=== PATIENT | male | born 1995 | race Hispanic/Latino ===

== ENCOUNTER 2023-01-05 17:10 | Emergency (ER) | payer SELFPAY ==
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
[2023-01-05] MEDS ORDERED: FAMOTIDINE 20 MG/2 ML VIAL IV ONE (17:55)
[2023-01-05] MEDS ORDERED: ONDANSETRON 4 MG/2 ML VIAL ONE (17:55)
[2023-01-05 18:12] LABS: Hematocrit 42.3 % (39.6-49.0); Lymphocytes % 27.9 % (15.3-44.8); MCV 91.8 fL (80-100); MPV 8.4 fL (7.6-11.3); RBC Red Blood Cell Count 4.61 M/uL (4.33-5.43)
[2023-01-05 18:29] LABS: Albumin 3.8 g/dL (3.4-5.0); Bilirubin Total 0.3 mg/dL (0.2-1.0); Potassium 3.4 mmol/L (3.5-5.1); Protein, Total 7.4 g/dL (6.4-8.2)
--- NOTE | 2023-01-05 19:09 | RAD REPORT ---
EXAM DESCRIPTION: US - Abdomen Exam Limited - 01/05/2023 6:52 pm CLINICAL HISTORY: nausea/vomiting COMPARISON: No comparisons FINDINGS: The gallbladder demonstrates no gallstones. No pericholecystic fluid or gallbladder wall t hickening. The common bile duct is normal measuring 2 mm. The liver demonstrates no findings of intrahepatic biliary dilatation. IMPRESSION: Unremarkable examination.
--- NOTE | 2023-01-05 20:51 | RAD REPORT ---
EXAM DESCRIPTION: CTAbdomen Pelvis W Contrast - 01/05/2023 8:36 pm CLINICAL HISTORY: NAUSEA / VOMITING COMPARISON: No comparisons TECHNIQUE: CT of the abdomen and pelvis was performed with IV contrast. All CT scans are performed using dose optimization technique as appropriate and may include automated exposure control or mA/KV adjustment according to patient size. FINDINGS: Lower chest: No acute abnormality. Liver: No acute abnormality or suspicious lesions. Biliary: No biliary ductal dilatation. Stomach: No significant focal abnormality. Duodenum: No significant focal abnormality. Pancreas: No significant abnormality. Spleen: No significant abnormality. Adrenal: No suspicious lesions. Kidney/ureter: No hydronephrosis. No renal calculi. Retroperitoneum: No retroperitoneal adenopathy. Vascular: No aneurysm. Bowel: No significant focal abnormality. Normal appendix. Peritoneum: No ascites or free air. Bladder: Grossly unremarkable. Reproductive: No adnexal masses. Bones: No acute fracture. Other: n/a IMPRESSION: No acute intra-abdominal or pelvic finding.
--- NOTE | 2023-01-05 21:14 | EDPHYS ---
Physician Documentation [facility] Name: Emmanuel Gomez Age: 27 yrs Sex: Male : 1995 Arrival Date: 01/05/2023 Time: 17:15 Bed 24 Private MD: ED Physician Trung Ayon HPI: 01/05 17:55 This 27 yrs old Male presents to ER via Ambulatory with complaints of cp Nausea/Vomiting. 17:55 The patient presents to the emergency department with nausea, that is moderate, cp vomiting, that is intermittent, described as bilious. 17:55 Onset: The symptoms/episode began/occurred 2 week(s) ago. cp 17:55 Possible causes: unknown. Associated signs and symptoms: Pertinent positives: abdominal cp pain, anorexia, dysuria, fever, Pertinent negatives: constipation, diarrhea, fever, GI bleeding. Severity of symptoms: in the emergency department the symptoms are unchanged despite home interventions. Patient reports nausea with intermittent vomiting in the morning upon awakening and vomiting with eating times 2 weeks. Historical: - Allergies: 17:42 No Known Allergies; ap3 - Home Meds: 17:42 None [Active]; ap3 - PMHx: 17:42 Diverticulitis; ap3 - PSHx: 17:42 hernia repair; ap3 - Immunization history:: Client reports having NOT received the Covid vaccine. - Social history:: Smoking status: Patient reports the use of cigarette tobacco products, denies chronic smoking, but will smoke occasionally, Patient uses alcohol, occasionally. ROS: 18:00 Constitutional: Negative for body aches, chills, fever, poor PO intake, weight loss. cp 18:00 Eyes: Negative for injury, pain, redness, and discharge. cp 18:00 ENT: Negative for drainage from ear(s), ear pain, sore throat, difficulty swallowing, difficulty handling secretions. 18:00 Cardiovascular: Negative for chest pain, palpitations. 18:00 Respiratory: Negative for cough, shortness of breath, wheezing. 18:00 Abdomen/GI: Positive for abdominal pain, nausea and vomiting, anorexia, Negative for diarrhea, constipation, dysphagia, hematemesis. 18:00 Skin: Negative for burn, rash. 18:00 Neuro: Negative for altered mental status, dizziness, headache, numbness, syncope, weakness. 18:00 All other systems are negative. Exam: 18:05 Constitutional: The patient appears in no acute distress, alert, awake, comfortable, cp non-diaphoretic, non-toxic, well developed, well nourished. 18:05 Head/Face: Normocephalic, atraumatic. cp 18:05 Eyes: Periorbital structures: appear normal, Conjunctiva: normal, no exudate, no injection, Sclera: no appreciated abnormality, Lids and lashes: appear normal, bilaterally. 18:05 ENT: External ear(s): are unremarkable, Nose: is normal, Mouth: Lips: moist, Oral mucosa: moist, Posterior pharynx: is normal, airway is patent, no erythema, no exudate. 18:05 Chest/axilla: Inspection: normal. 18:05 Cardiovascular: Rate: normal, Rhythm: regular. 18:05 Respiratory: the patient does not display signs of respiratory distress, Respirations: normal, no use of accessory muscles, no retractions, labored breathing, is not present, Breath sounds: are clear throughout, no decreased breath sounds, no stridor, no wheezing. 18:05 Abdomen/GI: Inspection: abdomen appears normal, Bowel sounds: active, all quadrants, Palpation: soft, in all quadrants, mild abdominal tenderness, in the epigastric area and mid upper abdomen, rebound tenderness, is not appreciated, voluntary guarding, is not appreciated, involuntary guarding, is not appreciated. 18:05 Back: pain, is absent, ROM is normal. Vital Signs: 17:41 BP 134 / 88; Pulse 85; Resp 18; Temp 98.6; Pulse Ox 100% ; Weight 92.99 kg; ap3 20:00 BP 134 / 66; Pulse 63; Resp 18; Pulse Ox 99% on R/A; kr3 21:25 BP 141 / 64; Pulse 50; Resp 18; Pulse Ox 98% on R/A; kr3 MDM: 17:26 Patient medically screened. cp 21:10 Data reviewed: vital signs, nurses notes, lab test result(s), radiologic studies, CT cp scan, ultrasound. 21:10 Differential diagnosis: Nonspecific abd pain, gastritis, cholecystitis, pancreatitis, cp appendicitis, diverticulitis, viral gastroenteritis, gastroenteritis. Consideration of Admission/Observation Escalation of care including admission/observation considered. I considered the following discharge prescriptions or medication management in the emergency department Medications were administered in the Emergency Department. See MAR. Counseling: I had a detailed discussion with the patient and/or guardian regarding: the historical points, exam findings, and any diagnostic results supporting the discharge/admit diagnosis, lab results, radiology results, the need for outpatient follow up, a family practitioner, to return to the emergency department if symptoms worsen or persist or if there are any questions or concerns that arise at home. Response to treatment: the patient's symptoms have markedly improved after treatment, and as a result, I will discharge patient. Special discussion: Based on the patient's Hx, exam, and Dx evaluation, there is no indication for emergent surgery or inpatient Tx. It is understood by the patient/guardian that if the Sx's persist or worsen they need to return immediately for re-evaluation. 01/05 17:48 Order name: CBC with Diff; Complete Time: 18:35 cp 01/05 17:48 Order name: CMP; Complete Time: 18:35 cp 01/05 18:35 Interpretation: Normal except: K 3.4; GLUC 113; GLOB 3.6. cp 01/05 17:48 Order name: Lipase; Complete Time: 18:35 cp 01/05 18:35 Interpretation: Abnormal: LIP 117. cp 01/05 17:48 Order name: Abdomen Limited US: gallbladder; Complete Time: 20:22 cp 01/05 20:23 Interpretation: Report reviewed. cp 01/05 17:48 Order name: IV Saline Lock; Complete Time: 18:33 cp 01/05 17:48 Order name: Labs collected and sent; Complete Time: 18:33 cp 01/05 18:36 Order name: CT Abd/Pelvis - IV Contrast Only cp 01/05 20:52 Order name: CT; Complete Time: 21:09 EDMS 01/05 21:09 Order name: PO challenge cp Administered Medications: 18:12 Drug: Zofran (Ondansetron) 4 mg Route: IVP; Site: right antecubital; kr3 21:28 Follow up: Response: No adverse reaction kr3 18:15 Drug: Pepcid (famotidine) 20 mg Route: IVP; Site: right antecubital; kr3 21:28 Follow up: Response: No adverse reaction kr3 Disposition Summary: 01/05/23 21:13 Discharge Ordered Location: Home cp Problem: new cp Symptoms: have improved cp Condition: Stable cp Diagnosis - Nausea with vomiting, unspecified cp - Abdominal pain, unspecified cp Followup: cp - With: Jere Bhardwaj MD - When: 2 - 3 days - Reason: Recheck today's complaints Discharge Instructions: - Discharge Summary Sheet cp - Abdominal Pain, Adult cp - Nausea and Vomiting, Adult cp - Acute Pancreatitis cp - Pancreatitis Eating Plan cp Forms: - Medication Reconciliation Form cp - Thank You Letter cp - Antibiotic Education cp - Prescription Opioid Use cp - Work release form kr3 Prescriptions: - Pepcid 20 mg Oral Tablet - take 1 tablet by ORAL route every 12 hours for 10 days; 20 tablet; Refills: 0, cp Product Selection Permitted - Zofran 4 mg Oral Tablet - take 1 tablet by ORAL route every 12 hours As needed; 20 tablet; Refills: 0, cp Product Selection Permitted Signatures: Dispatcher [employer] EDRashid Chapa PA PA cp Prokisch, Amanda RN RN ap3 Elke Finn RN RN kr3
--- NOTE | 2023-01-05 21:14 | ER ---
Nurse's Notes [facility] Name: Emmanuel Gomez Age: 27 yrs Sex: Male : 1995 Arrival Date: 01/05/2023 Time: 17:15 Bed 24 Private MD: Diagnosis: Nausea with vomiting, unspecified;Abdominal pain, unspecified Presentation: 01/05 17:41 Chief complaint: Patient states: he has been having nausea when he wakes up in the ap3 mornings and also anytime he eats or drinks. Coronavirus screen: At this time, the client does not indicate any symptoms associated with coronavirus-19. Ebola Screen: No symptoms or risks identified at this time. Initial Sepsis Screen: Does the patient meet any 2 criteria? No. Patient's initial sepsis screen is negative. Does the patient have a suspected source of infection? No. Patient's initial sepsis screen is negative. Risk Assessment: Do you want to hurt yourself or someone else? Patient reports no desire to harm self or others. Onset of symptoms was December 29, 2022. 17:41 Method Of Arrival: Ambulatory ap3 17:41 Acuity: DIANNE 3 ap3 Triage Assessment: 17:43 General: Appears in no apparent distress. Behavior is calm, cooperative, appropriate ap3 for age. Pain: Denies pain. Neuro: Level of Consciousness is awake, alert, obeys commands, Oriented to person, place, time, situation. Cardiovascular: Patient's skin is warm and dry. Respiratory: Airway is patent Respiratory effort is even, unlabored, Respiratory pattern is regular, symmetrical. GI: Reports nausea, vomiting. Historical: - Allergies: 17:42 No Known Allergies; ap3 - Home Meds: 17:42 None [Active]; ap3 - PMHx: 17:42 Diverticulitis; ap3 - PSHx: 17:42 hernia repair; ap3 - Immunization history:: Client reports having NOT received the Covid vaccine. - Social history:: Smoking status: Patient reports the use of cigarette tobacco products, denies chronic smoking, but will smoke occasionally, Patient uses alcohol, occasionally. Screenin:43 [facility] ED Fall Risk Assessment (Adult) History of falling in the last 3 months, ap3 including since admission No falls in past 3 months (0 pts). Abuse screen: Denies threats or abuse. Nutritional screening: No deficits noted. Tuberculosis screening: No symptoms or risk factors identified. Assessment: 18:50 Reassessment: Patient and/or family updated on plan of care and expected duration. Pain kr3 level reassessed. Patient is alert, oriented x 3, equal unlabored respirations, skin warm/dry/pink. 19:50 Reassessment: Patient and/or family updated on plan of care and expected duration. Pain kr3 level reassessed. Patient is alert, oriented x 3, equal unlabored respirations, skin warm/dry/pink. 21:00 Reassessment: Patient and/or family updated on plan of care and expected duration. Pain kr3 level reassessed. Patient is alert, oriented x 3, equal unlabored respirations, skin warm/dry/pink. Vital Signs: 17:41 BP 134 / 88; Pulse 85; Resp 18; Temp 98.6; Pulse Ox 100% ; Weight 92.99 kg; ap3 20:00 BP 134 / 66; Pulse 63; Resp 18; Pulse Ox 99% on R/A; kr3 21:25 BP 141 / 64; Pulse 50; Resp 18; Pulse Ox 98% on R/A; kr3 ED Course: 17:15 Patient arrived in ED. mr 17:16 Rashid Willoughby PA is PHCP. cp 17:16 Trung Ayon MD is Attending Physician. cp 17:42 Elke Finn, JESSIE is Primary Nurse. kr3 17:42 Triage completed. ap3 17:43 Arm band placed on right wrist. ap3 17:43 Patient has correct armband on for positive identification. Bed in low position. Call ap3 light in reach. Side rails up X 1. Pulse ox on. NIBP on. Door closed. Noise minimized. 17:55 Inserted saline lock: 20 gauge in right antecubital area, using aseptic technique. kr3 Blood collected. 18:54 Abdomen Limited US: gallbladder In Process Unspecified. EDMS 21:12 Jere Bhardwaj MD is Referral Physician. cp 21:28 No provider procedures requiring assistance completed. IV discontinued, intact, kr3 bleeding controlled, No redness/swelling at site. Pressure dressing applied. Administered Medications: 18:12 Drug: Zofran (Ondansetron) 4 mg Route: IVP; Site: right antecubital; kr3 21:28 Follow up: Response: No adverse reaction kr3 18:15 Drug: Pepcid (famotidine) 20 mg Route: IVP; Site: right antecubital; kr3 21:28 Follow up: Response: No adverse reaction kr3 Medication: 21:29 VIS not applicable for this client. kr3 Outcome: 21:13 Discharge ordered by . jessee 21:27 Patient left the ED. kr3 21:29 Discharged to home ambulatory. kr3 21:29 Condition: stable 21:29 Discharge instructions given to patient, Instructed on discharge instructions, follow up and referral plans. medication usage, Demonstrated understanding of instructions, follow-up care, medications, Prescriptions given X 2. Signatures: Dispatcher [employer] EDKY Bert Winnie mr Rashid Willoughby, June Gerard cp, RN RN ap3 Elke Finn RN RN kr3 Corrections: (The following items were deleted from the chart) 21:29 17:15 Inserted saline lock: 20 gauge in right antecubital area, using aseptic kr3 technique. Blood collected. kr3
[2023-01-05 22:22] VITALS: TEMP 98.6
[2023-01-05 22:23] VITALS: BP 141/64; O2SAT 98
== END 2023-01-05 21:27 | disposition home or self-care (01) ==
LOC: ER 17:10
DX: R11.2 Nausea with vomiting, unspecified (principal); R10.9 Unspecified abdominal pain; F17.210 Nicotine dependence, cigarettes, uncomplicated
CPT/HCPCS: 36415; 74177; 76705; 80053; 83690; 85025; J2405; Q9967

== ENCOUNTER 2023-05-03 19:33 | Emergency (ER) | payer SELFPAY ==
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
[2023-05-03 21:24] LABS: Absolute Lymphocytes (CBC) 2.2 K/uL (0.7-4.9); Lymphocytes % 16.3 % (15.3-44.8); MCV 90.3 fL (80-100); MPV 9.7 fL (7.6-11.3); RBC Red Blood Cell Count 5.43 M/uL (4.33-5.43)
[2023-05-03 21:33] LABS: Albumin 3.9 g/dL (3.4-5.0); Bilirubin Total 0.5 mg/dL (0.2-1.0); Potassium 3.7 mEq/L (3.5-5.1); Protein, Total 8.9 g/dL (6.4-8.2)
[2023-05-03] MEDS ORDERED: NA CHLORIDE 0.9% 1,000 ML ONE (21:36)
[2023-05-03] MEDS ORDERED: PANTOPRAZOLE 40 MG INJ ONE (21:36)
[2023-05-03] MEDS ORDERED: ONDANSETRON 4 MG/2 ML VIAL ONE (21:36)
[2023-05-03 21:45] LABS: SARS-CoV-2 Antigen Rapid Res Negative (Negative)
[2023-05-03 21:45] LABS: Specific Gravity 1.028 (1.005-1.030); Urine Bacteria <20 /HPF (<20); Urine Bilirubin NEGATIVE (Negative); Urine Blood Negative (Negative); Urine Clarity Clear (Clear); Urine Color Yellow (Yellow); Urine Glucose NEGATIVE (Negative); Urine Mucus 4+ /HPF (None Seen); Urine Protein 1+ (Negative); Urine Urobilinogen Normal (Normal); Urine pH 5.5 (5.0-7.0)
--- NOTE | 2023-05-03 21:57 | RAD REPORT ---
EXAM DESCRIPTION: Meli Single View05/03/2023 9:43 pm CLINICAL HISTORY: Fever and abdominal pain COMPARISON: none FINDINGS: The lungs appear clear of acute infiltrate. The heart is normal size IMPRESSION: No acute abnormalities displayed
--- NOTE | 2023-05-03 22:09 | RAD REPORT ---
EXAM DESCRIPTION: CT - Abdomen Pelvis W Contrast - 05/03/2023 9:59 pm CLINICAL HISTORY: Abdominal pain COMPARISON: December 2022 TECHNIQUE: Computed axial tomography of the abdomen pelvis was obtained. 100 cc Isovue-300 was admin istered intravenously. Oral contrast was not requested which limits evaluation of bowel and appendix All CT scans are performed using dose optimization technique as appropriate and may include automated exposure control or mA/KV adjustment according to patient size. FINDINGS: The liver, spleen, pancreas, adrenal and kidneys appear unremarkable. There is no evidence of diverticulitis. Normal appendix. Tiny umbilical hernia IMPRESSION: No acute abnormality is displayed.
--- NOTE | 2023-05-03 22:59 | EDPHYS ---
Physician Documentation [facility] Name: Emmanuel Gomez Age: 27 yrs Sex: Male : 1995 Arrival Date: 05/03/2023 Time: 19:33 Bed 19 Private MD: ED Physician Trung Ayon HPI: 05/03 21:00 This 27 yrs old Male presents to ER via Ambulatory with complaints of cp Nausea/Vomiting, Fever. 21:00 The patient presents to the emergency department with nausea, that is moderate, cp vomiting, that is intermittent, abdominal pain. Onset: The symptoms/episode began/occurred 2 week(s) ago. Possible causes: unknown. Associated signs and symptoms: Pertinent positives: anorexia, fever, Pertinent negatives: diarrhea, GI bleeding. Severity of symptoms: in the emergency department the symptoms are unchanged despite home interventions. Historical: - Allergies: 20:19 No Known Allergies; nj1 - PMHx: 20:19 Diverticulitis; nj1 - PSHx: 20:19 hernia repair; nj1 - Immunization history:: Client reports having NOT received the Covid vaccine. - Social history:: Smoking status: Patient reports the use of cigarette tobacco products, denies chronic smoking, but will smoke occasionally. ROS: 21:05 Constitutional: Positive for poor PO intake, Negative for chills, fever. cp 21:05 Eyes: Negative for injury, pain, redness, and discharge. cp 21:05 ENT: Negative for drainage from ear(s), ear pain, sore throat, difficulty swallowing, difficulty handling secretions. 21:05 Cardiovascular: Positive for chest pain, Negative for edema, palpitations. 21:05 Respiratory: Negative for cough, shortness of breath, wheezing. 21:05 Abdomen/GI: Positive for abdominal pain, nausea and vomiting, Negative for diarrhea, constipation, hematemesis, black/tarry stool, rectal bleeding. 21:05 Neuro: Negative for altered mental status, headache. 21:05 All other systems are negative. Exam: 21:10 Constitutional: The patient appears in no acute distress, alert, awake, cp non-diaphoretic, non-toxic, well developed, well nourished. 21:10 Head/Face: Normocephalic, atraumatic. cp 21:10 Eyes: Periorbital structures: appear normal, Conjunctiva: normal, no exudate, no cp injection, Sclera: no appreciated abnormality, Lids and lashes: appear normal, bilaterally. 21:10 ENT: External ear(s): are unremarkable, Nose: is normal, Mouth: Lips: moist, Oral cp mucosa: pink and intact, moist, Posterior pharynx: is normal, airway is patent, no erythema, no exudate. 21:10 Chest/axilla: Inspection: normal. 21:10 Cardiovascular: Rate: tachycardic, Rhythm: regular. 21:10 Respiratory: the patient does not display signs of respiratory distress, Respirations: normal, no use of accessory muscles, no retractions, labored breathing, is not present, Breath sounds: are clear throughout, no decreased breath sounds, no stridor, no wheezing. 21:10 Abdomen/GI: Inspection: abdomen appears normal, Bowel sounds: active, all quadrants, Palpation: soft, in all quadrants, moderate abdominal tenderness, in the umbilical area, right upper quadrant and left upper quadrant, rebound tenderness, is not appreciated, voluntary guarding, is elicited in the umbilical area, right upper quadrant and left upper quadrant. 21:10 Back: CVA tenderness, is absent. 21:10 Skin: no rash present. 21:10 Neuro: Orientation: is normal, Mentation: is normal, Motor: moves all fours, strength is normal, Sensation: is normal. Vital Signs: 20:15 BP 152 / 103; Pulse 107; Resp 20; Temp 98.6; Pulse Ox 99% ; Weight 81.65 kg; Height 5 nj1 ft. 10 in. ; Pain 9/10; 21:00 BP 137 / 108; Pulse 86; Resp 18 S; Pulse Ox 98% on R/A; ha1 22:00 BP 155 / 84; Pulse 85; Resp 16 S; Pulse Ox 98% on R/A; ha1 23:00 BP 150 / 81; Pulse 82; Resp 16 S; Pulse Ox 99% on R/A; ha1 20:15 Body Mass Index 25.83 (81.65 kg, 177.8 cm) nj1 20:15 Pain Scale: Adult nj MDM: 20:21 Patient medically screened. cp 22:59 Data reviewed: vital signs, nurses notes, lab test result(s), radiologic studies, CT cp scan, plain films. 22:59 Differential diagnosis: gastritis, cholecystitis, pancreatitis, appendicitis, viral cp gastroenteritis, gastroenteritis. I considered the following discharge prescriptions or medication management in the emergency department Medications were administered in the Emergency Department. See MAR. Counseling: I had a detailed discussion with the patient and/or guardian regarding: the historical points, exam findings, and any diagnostic results supporting the discharge/admit diagnosis, lab results, radiology results, the need for outpatient follow up, a authorization rep, to return to the emergency department if symptoms worsen or persist or if there are any questions or concerns that arise at home. Response to treatment: the patient's symptoms have markedly improved after treatment, and as a result, I will discharge patient. 05/03 20:44 Order name: CBC with Diff; Complete Time: 22:54 05/03 22:54 Interpretation: Normal except: WBC 13.40; NEUT A 9.4; MNA 1.4. 05/03 20:44 Order name: CMP; Complete Time: 22:54 05/03 22:54 Interpretation: Normal except: ALT 70; ALK 123; TP 8.9; GLOB 5.0; A/G 0.8. 05/03 20:44 Order name: Lipase; Complete Time: 22:54 05/03 20:44 Order name: Urinalysis w/ reflexes; Complete Time: 22:54 05/03 20:44 Order name: [place] Screen Profile; Complete Time: 22:54 05/03 21:13 Order name: Influenza Screen (A ; Complete Time: 22:54 EDPA 05/03 21:13 Order name: SARS-COV-2 Antigen Rapid; Complete Time: 22:54 [facility] 05/03 20:44 Order name: XRAY Chest (1 view); Complete Time: 22:54 05/03 20:44 Order name: CT Abd/Pelvis - IV Contrast Only; Complete Time: 22:54 05/03 20:44 Order name: IV Saline Lock; Complete Time: 20:46 05/03 20:44 Order name: Labs collected and sent; Complete Time: 21:18 cp 05/03 22:58 Order name: PO challenge; Complete Time: 23:32 cp Administered Medications: 21:05 Drug: Ondansetron IVP 4 mg Route: IVP; Site: right antecubital; ha1 23:38 Follow up: Response: No adverse reaction; Nausea is decreased ha1 21:05 Drug: NS 0.9% IV 1000 ml Route: IV; Rate: 1 bolus; Site: right antecubital; ha1 23:38 Follow up: Response: No adverse reaction; IV Status: Completed infusion; IV Intake: ha1 1000ml 21:09 Drug: Pantoprazole IVP 40 mg Route: IVP; Site: right antecubital; ha1 23:38 Follow up: Response: No adverse reaction ha1 Disposition Summary: 05/03/23 22:59 Discharge Ordered Location: Home cp Problem: new cp Symptoms: have improved cp Condition: Stable cp Diagnosis - Nausea with vomiting, unspecified cp - Upper abdominal pain, unspecified cp Followup: cp - With: Jere Bhardwaj MD - When: 2 - 3 days - Reason: Recheck today's complaints Discharge Instructions: - Discharge Summary Sheet cp - Abdominal Pain, Adult cp - Gastritis, Adult cp - Nausea and Vomiting, Adult cp Forms: - Medication Reconciliation Form cp - Thank You Letter cp - Antibiotic Education cp - Prescription Opioid Use cp - [email or web address] cp Prescriptions: - Protonix 40 mg Oral Tablet - take 1 tablet by ORAL route once daily; 30 tablet; Refills: 0, Product cp Selection Permitted - Zofran 4 mg Oral Tablet - take 1 tablet by ORAL route every 12 hours As needed; 20 tablet; Refills: 0, cp Product Selection Permitted Signatures: Dispatcher [employer] EDMS Rashid Willoughby PA PA cp Cece Wright RN RN [facility] Caitlin Juarez RN RN [facility] Corrections: (The following items were deleted from the chart) 20:20 20:19 Social history: Smoking status: Patient reports the use of cigarette tobacco nj1 products, smokes one-half pack cigarettes per day, nj1 21:13 20:45 COVID-19/FLU A+B+MOL.LAB.BRZ ordered. EDMS EDMS
--- NOTE | 2023-05-03 22:59 | ER ---
Nurse's Notes [facility] Name: Emmanuel Gomez Age: 27 yrs Sex: Male : 1995 Arrival Date: 05/03/2023 Time: 19:33 Bed 19 Private MD: Diagnosis: Nausea with vomiting, unspecified;Upper abdominal pain, unspecified Presentation: 05/03 20:15 Chief complaint: Patient states: Nausea, vomiting, fever, chills for 2 weeks. Getting nj1 worse, unable to keep anything down. Chest starting to hurt. Has tried OTC meds but has not really help. Coronavirus screen: Vaccine status: Patient reports being unvaccinated. Ebola Screen: Patient denies travel to an Ebola-affected area in the 21 days before illness onset. Initial Sepsis Screen: Does the patient meet any 2 criteria? HR > 90 bpm. Does the patient have a suspected source of infection? No. Patient's initial sepsis screen is negative. Risk Assessment: Do you want to hurt yourself or someone else? Patient reports no desire to harm self or others. Onset of symptoms was April 19, 2023. 20:15 Method Of Arrival: Ambulatory [facility] 20:15 Acuity: DIANNE 3 nj1 Historical: - Allergies: 20:19 No Known Allergies; nj1 - PMHx: 20:19 Diverticulitis; nj1 - PSHx: 20:19 hernia repair; nj1 - Immunization history:: Client reports having NOT received the Covid vaccine. - Social history:: Smoking status: Patient reports the use of cigarette tobacco products, denies chronic smoking, but will smoke occasionally. Screenin:20 [facility] ED Fall Risk Assessment (Adult) History of falling in the last 3 months, ha1 including since admission No falls in past 3 months (0 pts) Confusion or Disorientation No (0 pts) Intoxicated or Sedated No (0 pts) Score/Fall Risk Level 0 - 2 = Low Risk Oriented to surroundings, Maintained a safe environment, Educated pt \T\ family on fall prevention, incl call for assistance when getting out of bed. 22:23 Abuse screen: Denies threats or abuse. Nutritional screening: No deficits noted. ha1 Tuberculosis screening: No symptoms or risk factors identified. Assessment: 20:20 General: Appears comfortable, Behavior is calm, cooperative. Pain: Complains of pain in ha1 abdomen Pain does not radiate. Pain currently is 9 out of 10 on a pain scale. Neuro: Level of Consciousness is awake, alert, obeys commands, Oriented to person, place, time, situation. Cardiovascular: Patient's skin is warm and dry. Respiratory: Airway is patent Respiratory effort is even, unlabored, Respiratory pattern is regular, symmetrical. GI: Abdomen is flat, non-distended, Bowel sounds present X 4 quads. Reports lower abdominal pain. 21:20 Reassessment: Patient and/or family updated on plan of care and expected duration. Pain ha1 level reassessed. Patient is alert, oriented x 3, equal unlabored respirations, skin warm/dry/pink. 22:20 Reassessment: Patient and/or family updated on plan of care and expected duration. Pain ha1 level reassessed. Patient is alert, oriented x 3, equal unlabored respirations, skin warm/dry/pink. Patient states symptoms have improved. 23:00 Reassessment: Patient and/or family updated on plan of care and expected duration. Pain ha1 level reassessed. Patient is alert, oriented x 3, equal unlabored respirations, skin warm/dry/pink. Patient states feeling better. Patient states symptoms have improved. Vital Signs: 20:15 BP 152 / 103; Pulse 107; Resp 20; Temp 98.6; Pulse Ox 99% ; Weight 81.65 kg; Height 5 nj1 ft. 10 in. ; Pain 9/10; 21:00 BP 137 / 108; Pulse 86; Resp 18 S; Pulse Ox 98% on R/A; ha1 22:00 BP 155 / 84; Pulse 85; Resp 16 S; Pulse Ox 98% on R/A; ha1 23:00 BP 150 / 81; Pulse 82; Resp 16 S; Pulse Ox 99% on R/A; ha1 20:15 Body Mass Index 25.83 (81.65 kg, 177.8 cm) ks1 20:15 Pain Scale: Adult [facility] ED Course: 19:40 Patient arrived in ED. cc5 20:13 Rashid Willoughby PA is PHCP. cp 20:13 Trung Ayon MD is Attending Physician. cp 20:19 Triage completed. nj1 20:20 Arm band placed on left wrist. nj1 20:20 Patient has correct armband on for positive identification. Placed in gown. Bed in low ha1 position. Call light in reach. Side rails up X 1. 20:48 Radiology exam delayed due to IV insertion attempt and/or patient not having bq appropriate IV at this time. 21:10 No provider procedures requiring assistance completed. Inserted saline lock: 20 gauge ha1 in right antecubital area, using aseptic technique. Blood collected. 21:17 Cece Wright, RN is Primary Nurse. ha1 21:18 CBC with Diff Sent. ha1 21:18 CMP Sent. ha1 21:18 Lipase Sent. ha1 21:24 SARS-COV-2 Antigen Rapid Sent. ha1 21:24 Influenza Screen (A Sent. ha1 21:44 XRAY Chest (1 view) In Process Unspecified. EDMS 22:01 CT Abd/Pelvis - IV Contrast Only In Process Unspecified. EDMS 22:58 Jere Bhardwaj MD is Referral Physician. cp 23:39 IV discontinued, intact, bleeding controlled, No redness/swelling at site. Pressure ha1 dressing applied. Administered Medications: 21:05 Drug: Ondansetron IVP 4 mg Route: IVP; Site: right antecubital; ha1 23:38 Follow up: Response: No adverse reaction; Nausea is decreased ha1 21:05 Drug: NS 0.9% IV 1000 ml Route: IV; Rate: 1 bolus; Site: right antecubital; ha1 23:38 Follow up: Response: No adverse reaction; IV Status: Completed infusion; IV Intake: ha1 1000ml 21:09 Drug: Pantoprazole IVP 40 mg Route: IVP; Site: right antecubital; ha1 23:38 Follow up: Response: No adverse reaction ha1 Medication: 23:40 VIS not applicable for this client. ha1 Intake: 23:38 IV: 1000ml; Total: 1000ml. ha1 Outcome: 22:59 Discharge ordered by MD. cp 23:39 Discharged to home ambulatory, with family. ha1 23:39 Condition: stable 23:39 Discharge instructions given to patient, family, Instructed on discharge instructions, follow up and referral plans. medication usage, Demonstrated understanding of instructions, follow-up care, medications, Prescriptions given X 2. 23:40 Patient left the ED. ha1 Signatures: Dispatcher [employer] EDTN Miri Campo Corey, PA PA cp Cece Wright RN RN ha1 Domitila Shah cc5 Caitlin Juarez RN RN nj1 Corrections: (The following items were deleted from the chart) 20:19 20:15 BP 152 / 103; Pulse 107bpm; Resp 20bpm; Pulse Ox 99%; 81.65 kg; Height 5 ft. 10 nj1 in.; BMI: 25.8; Pain 9/10, Adult; nj1 20:20 20:19 Social history: Smoking status: Patient reports the use of cigarette tobacco nj1 products, smokes one-half pack cigarettes per day, nj1
[2023-05-03 23:46] VITALS: TEMP 98.6
[2023-05-03 23:51] VITALS: BP 150/81; O2SAT 99
== END 2023-05-03 23:40 | disposition home or self-care (01) ==
LOC: ER 19:33
DX: R11.2 Nausea with vomiting, unspecified (principal); R10.10 Upper abdominal pain, unspecified
CPT/HCPCS: 36415; 71045; 74177; 80053; 81001; 83690; 85025; 86308; 87804; 87811; C9113; J2405; J7030; Q9967

== ENCOUNTER 2023-07-07 13:32 | Emergency (ER) | payer SELFPAY ==
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
[2023-07-07] MEDS ORDERED: HYDRALAZINE HCL 20 MG/ML VIAL ONE (14:49)
[2023-07-07 14:57] LABS: SARS-CoV-2 Antigen Rapid Res Negative (Negative)
--- NOTE | 2023-07-07 15:23 | ER ---
Nurse's Notes [facility] Name: Emmanuel Gomez Age: 27 yrs Sex: Male : 1995 Arrival Date: 07/07/2023 Time: 13:32 Bed 18 Private MD: Diagnosis: Viral infection, unspecified Presentation: 07/07 13:55 Chief complaint: Patient states: he has been having night sweats, fever and body aches ap3 for approx 2 days now. Coronavirus screen: Client presents with at least one sign or symptom that may indicate coronavirus-19. Ebola Screen: No symptoms or risks identified at this time. Initial Sepsis Screen: Does the patient meet any 2 criteria? HR > 90 bpm. Does the patient have a suspected source of infection? No. Patient's initial sepsis screen is negative. Risk Assessment: Do you want to hurt yourself or someone else? Patient reports no desire to harm self or others. Onset of symptoms was July 05, 2023. 13:55 Method Of Arrival: Ambulatory ap3 13:55 Acuity: DIANNE 4 ap3 Triage Assessment: 13:56 General: Appears in no apparent distress. Behavior is calm, cooperative, appropriate ap3 for age. Pain: Complains of pain in generalized body aches. Neuro: Level of Consciousness is awake, alert, obeys commands, Oriented to person, place, time, situation, Appropriate for age. Cardiovascular: Patient's skin is warm and dry. Respiratory: Airway is patent Respiratory effort is even, unlabored, Respiratory pattern is regular, symmetrical. GI: Reports diarrhea, nausea. 13:57 General: Reports fever for feeling ill for fatigue for. ap3 Historical: - Allergies: 13:56 No Known Allergies; ap3 - Home Meds: 13:56 None [Active]; ap3 - PMHx: 13:56 Diverticulitis; ap3 - PSHx: 13:56 hernia repair; ap3 - Immunization history:: Client reports having NOT received the Covid vaccine. - Social history:: Smoking status: Patient/guardian denies using tobacco, Stopped _ months ago 1. Screenin:57 [facility] ED Fall Risk Assessment (Adult) History of falling in the last 3 months, ap3 including since admission No falls in past 3 months (0 pts). Abuse screen: Denies threats or abuse. Nutritional screening: No deficits noted. Tuberculosis screening: No symptoms or risk factors identified. Assessment: 14:19 General: Appears in no apparent distress. comfortable, Behavior is calm, cooperative, ld1 appropriate for age. Pain: Denies pain. Neuro: Level of Consciousness is awake, alert, obeys commands, Oriented to person, place, time, situation. Cardiovascular: Capillary refill < 3 seconds Patient's skin is warm and dry. Respiratory: Airway is patent Respiratory effort is even, unlabored. GI: Abdomen is flat, non-distended. : No signs and/or symptoms were reported regarding the genitourinary system. EENT: No signs and/or symptoms were reported regarding the EENT system. Derm: No signs and/or symptoms reported regarding the dermatologic system. Musculoskeletal: No signs and/or symptoms reported regarding the musculoskeletal system. Vital Signs: 13:55 BP 145 / 73; Pulse 100; Resp 17; Temp 98.6; Pulse Ox 100% ; Weight 81.65 kg; Pain 7/10; ap3 13:55 Pain Scale: Adult ap3 ED Course: 13:33 Patient arrived in ED. rg4 13:37 Rashid Willoughby PA is PHCP. cp 13:37 Shante Pate MD is Attending Physician. cp 13:56 Triage completed. ap3 13:57 Arm band placed on right wrist. ap3 14:13 Jessy Calderon, RN is Primary Nurse. ld1 14:19 Patient has correct armband on for positive identification. Placed in gown. Bed in low ld1 position. Call light in reach. Side rails up X2. Pulse ox on. NIBP on. Door closed. Noise minimized. Warm blanket given. 14:19 No provider procedures requiring assistance completed. ld1 14:30 Influenza Screen (a \T\ B) Sent. bc6 14:30 Strep Sent. bc6 15:26 Patient did not have IV access during this emergency room visit. ld1 Administered Medications: No medications were administered Medication: 13:57 VIS not applicable for this client. ap3 Outcome: 15:22 Discharge ordered by . cp 15:26 Discharged to home ambulatory. ld1 15:26 Condition: stable 15:26 Discharge instructions given to patient, Instructed on discharge instructions, follow up and referral plans. Demonstrated understanding of instructions, follow-up care, medications, Prescriptions given X 2. 15:26 Patient left the ED. ld1 Signatures: Rashid Willoughby PA PA cp Garcia, Rubi rg4 June Cortez RN RN ap3 Jessy Calderon RN RN ld1 Lilo Salcedo bc6 Corrections: (The following items were deleted from the chart) 14:43 14:30 SARS-COV-2 RT PCR+[id number] drawn and sent. 6 EDMS
--- NOTE | 2023-07-07 15:23 | EDPHYS ---
Physician Documentation [facility] Name: Emmanuel Gomez Age: 27 yrs Sex: Male : 1995 Arrival Date: 07/07/2023 Time: 13:32 Bed 18 Private MD: ED Physician Shante Pate HPI: 07/07 14:30 This 27 yrs old Male presents to ER via Ambulatory with complaints of Body cp Aches,Chills, Fever, Vomiting. 14:30 body aches, night sweats, fever. Onset: The symptoms/episode began/occurred 2 day(s) cp ago. 14:30 Severity of symptoms: in the emergency department the symptoms have improved mildly. cp Historical: - Allergies: 13:56 No Known Allergies; ap3 - Home Meds: 13:56 None [Active]; ap3 - PMHx: 13:56 Diverticulitis; ap3 - PSHx: 13:56 hernia repair; ap3 - Immunization history:: Client reports having NOT received the Covid vaccine. - Social history:: Smoking status: Patient/guardian denies using tobacco, Stopped _ months ago 1. ROS: 14:35 Constitutional: Positive for body aches, Negative for fever, poor PO intake. cp 14:35 Eyes: Negative for injury, pain, redness, and discharge. cp 14:35 ENT: Positive for sore throat, Negative for drainage from ear(s), ear pain, difficulty swallowing, difficulty handling secretions. 14:35 Cardiovascular: Negative for chest pain. 14:35 Respiratory: Negative for cough, shortness of breath, wheezing. 14:35 Abdomen/GI: Negative for abdominal pain, diarrhea, constipation, active vomiting. 14:35 : Negative for urinary symptoms. 14:35 Skin: Negative for rash. 14:35 All other systems are negative. Exam: 14:40 Constitutional: The patient appears in no acute distress, alert, awake, non-toxic, well cp developed, well nourished. 14:40 Head/Face: Normocephalic, atraumatic. cp 14:40 Eyes: Periorbital structures: appear normal, Conjunctiva: normal, no exudate, no injection, Lids and lashes: appear normal, bilaterally. 14:40 ENT: External ear(s): are unremarkable, Ear canal(s): are normal, clear, TM's: dullness, bilaterally, Nose: is normal, Mouth: Lips: moist, Oral mucosa: pink and intact, moist, Posterior pharynx: is normal, airway is patent, no erythema, no exudate. 14:40 Neck: ROM/movement: is normal, is supple, without pain, no range of motions limitations, no meningismus, Lymph nodes: no appreciated lymphadenopathy. 14:40 Chest/axilla: Inspection: normal. 14:40 Cardiovascular: Rate: tachycardic, Rhythm: regular. 14:40 Respiratory: the patient does not display signs of respiratory distress, Respirations: normal, no use of accessory muscles, no retractions, labored breathing, is not present, Breath sounds: are clear throughout, no decreased breath sounds, no stridor, no wheezing. 14:40 Abdomen/GI: Inspection: abdomen appears normal, Palpation: abdomen is soft and non-tender, in all quadrants. 14:40 Back: CVA tenderness, is absent. 14:40 Skin: no rash present. 14:40 Neuro: Orientation: to person, place \T\ time. Mentation: is normal, Motor: moves all fours, strength is normal. Vital Signs: 13:55 BP 145 / 73; Pulse 100; Resp 17; Temp 98.6; Pulse Ox 100% ; Weight 81.65 kg; Pain 7/10; ap3 13:55 Pain Scale: Adult ap3 MDM: 14:00 Patient medically screened. cp 14:30 Differential Diagnosis flu, strep throat, COVID-19. cp 15:21 Data reviewed: vital signs, nurses notes, lab test result(s). cp 15:21 Counseling: I had a detailed discussion with the patient and/or guardian regarding the cp historical points, exam findings, and any diagnostic results supporting the discharge/admit diagnosis, lab results. 07/07 14:20 Order name: Strep cp 07/07 14:20 Order name: Influenza Screen (a \T\ B) cp 07/07 14:43 Order name: SARS-COV-2 Antigen Rapid EDMS 07/07 14:55 Order name: Throat Culture EDMS Administered Medications: No medications were administered Disposition Summary: 07/07/23 15:22 Discharge Ordered Location: Home cp Problem: new cp Symptoms: are unchanged cp Condition: Stable cp Diagnosis - Viral infection, unspecified cp Followup: cp - With: Private Physician - When: 2 - 3 days - Reason: Worsening of condition Discharge Instructions: - Discharge Summary Sheet cp - Form - Excuse from Work, School, or Physical Activity cp - Viral Illness, Adult cp Forms: - Medication Reconciliation Form cp - Thank You Letter cp - Antibiotic Education cp - Prescription Opioid Use cp - Patient Portal Instructions cp - Leadership Thank You Letter cp Prescriptions: - Ibuprofen 800 mg Oral Tablet - take 1 tablet by ORAL route every 8 hours As needed take with food; 30 tablet; cp Refills: 0, Product Selection Permitted - Zofran 4 mg Oral Tablet - take 1 tablet by ORAL route every 12 hours As needed; 20 tablet; Refills: 0, cp Product Selection Permitted Signatures: Dispatcher [employer] EDMS Rashid Willoughby PA PA cp Prokisch, Amanda RN RN ap3 Corrections: (The following items were deleted from the chart) 14:43 14:21 SARS-COV-2 RT PCR+MOL.LAB.CARLOS EDUARDO ordered. EDMS EDMS
[2023-07-07 15:30] VITALS: BP 145/73; TEMP 98.6; O2SAT 100
== END 2023-07-07 15:26 | disposition home or self-care (01) ==
LOC: ER 13:32
DX: B34.9 Viral infection, unspecified (principal); Z20.822 Contact with and (suspected) exposure to COVID-19
CPT/HCPCS: 36415; 87070; 87081; 87804; 87811; J0360